=== PATIENT | male | born 1995 | race Caucasian/White ===

== ENCOUNTER 2017-02-20 16:30 | Emergency (ER) | payer MEDICAID ==
--- NOTE | 2017-02-20 18:41 | ERPHSYRPT ---
- History of Present Illness Time Seen by Provider: 02/20/17 18:34 Source: patient Exam Limitations: no limitations Patient Subjective Stated Complaint: sore throat and increased hearig loss for 2 days Triage Nursing Assessment: sore throat for 2 days. throat red and swollen. pain with swallowing. bilat ear wax-lt worse than rt. pt normally has hearing loss but stated it is equally worse for past 2 days. no fever Physician History: Sore throat and earache for 2-3 days, dry cough, nasal drainage and congestion, but no fever, chills, N/V/D. Taking some cough meds with min. relief. Rest of family with cough/cold symptoms. Timing/Duration: gradual onset Severity: moderate ENT Location: throat Prearrival Treatment: over the counter meds Modifying Factors: Improves With: coughing (worsens), exertion (worsens) Associated Symptoms: ear pain (R), ear pain (L), cough, fever, nasal congestion/ drainage, No chills, No ear drainage, No difficulty swallowing Allergies/Adverse Reactions: No Known Drug Allergies Allergy (Unverified 02/20/17 17:49) Home Medications: No Home Meds 1 [facility] UD 02/20/17 [History] Hx Tetanus, Diphtheria Vaccination/Date Given: Yes Hx Influenza Vaccination/Date Given: No Hx Pneumococcal Vaccination/Date Given: No Immunizations Up to Date: Yes - Review of Systems Constitutional: Fatigue, No Fever, No Chills Eyes: No Symptoms Ears, Nose, & Throat: Ear Pain, Hearing Changes, Nose Congestion, Nose Discharge , Throat Pain, Throat Swelling, No Painful Swallowing Respiratory: No Cough, No Dyspnea Cardiac: No Chest Pain, No Edema, No Syncope Abdominal/Gastrointestinal: No Abdominal Pain, No Nausea, No Vomiting, No Diarrhea Genitourinary Symptoms: No Dysuria Musculoskeletal: No Back Pain, No Neck Pain Skin: No Rash Neurological: No Dizziness, No Focal Weakness, No Sensory Changes Psychological: No Symptoms Endocrine: No Symptoms All Other Systems: Reviewed and Negative - Past Medical History Pertinent Past Medical History: Yes Neurological History: No Pertinent History ENT History: No Pertinent History, Other (decreased hearing) Cardiac History: No Pertinent History Respiratory History: No Pertinent History Endocrine Medical History: No Pertinent History Musculoskeletal History: No Pertinent History GI Medical History: No Pertinent History History: No Pertinent History Psycho-Social History: No Pertinent History Male Reproductive Disorders: No Pertinent History Other Medical History: born with hearing loss - Past Surgical History Past Surgical History: No Neuro Surgical History: No Pertinent History Cardiac: No Pertinent History Respiratory: No Pertinent History Gastrointestinal: No Pertinent History Genitourinary: No Pertinent History Musculoskeletal: No Pertinent History Male Surgical History: No Pertinent History Other Surgical History: ADNOIDS REMOVED WHEN YOUNGER - Social History Smoking Status: Never smoker Exposure to second hand smoke: No Drug Use: none Patient Lives Alone: No - Nursing Vital Signs Nursing Vital Signs: Initial Vital Signs Temperature 98.2 F Temperature Source Oral Pulse Rate 75 Respiratory Rate 16 Blood Pressure [Right Arm] 122/58 Pain Intensity 8 - Physical Exam General Appearance: no apparent distress, alert Eye Exam: bilateral eye: PERRL, EOMI Ear Exam: left ear: other (increased scarring of TM noted) Nasal Exam: normal inspection Throat Exam: moist mucus membranes, pharynx swelling (erythematous bilat), No tongue swollen, No tonsillar exudate Neck Exam: normal inspection, non-tender, supple, full range of motion, trachea midline Cardiovascular/Respiratory Exam: normal breath sounds, regular rate/rhythm Abdominal Exam: non-tender, soft Neurologic Exam: alert, oriented x 3, sensation nml, No motor deficits Skin Exam: normal color, warm, dry SpO2: 98 Oxygen Delivery: Room Air - Progress Progress: improved Counseled pt/family regarding: diagnosis - Departure Time of Disposition: 18:49 Departure Disposition: Home Clinical Impression: Pharyngitis Condition: Stable Critical Care Time: No Instructions: Strep Throat Additional Instructions: Motrin or Tylenol for fever, drink plenty of fluids. RX: Amoxil Return for worse sore throat, fever, difficulty swallowing/breathing or any problems. Prescriptions: Amoxicillin [Amoxil] 875 mg PO BID #20 tablet
[2017-02-20 19:02] VITALS: BP 112/55; PULSE 81; O2SAT 97
== END 2017-02-20 19:00 | disposition home or self-care (01) ==
LOC: ED 16:30
DX: J02.9 Acute pharyngitis, unspecified (principal); H91.93 Unspecified hearing loss, bilateral; H92.03 Otalgia, bilateral; R05 Cough; R50.9 Fever, unspecified
CPT/HCPCS: 99283

== ENCOUNTER 2017-08-24 11:38 | Emergency (ER) | payer OTHER ==
[2017-08-24 12:17] VITALS: BP 124/64; PULSE 65
[2017-08-24 12:18] VITALS: O2SAT 98
--- NOTE | 2017-08-24 12:39 | ERPHSYRPT ---
- History of Present Illness Time Seen by Provider: 08/24/17 12:35 Source: patient, family Exam Limitations: no limitations Patient Subjective Stated Complaint: PT HERE FOR RUNNY NOSE, HEADACHE, COUGH PRODUCTIVE GREEN Triage Nursing Assessment: PT ALERT, RESP EASY, SKIN W/D PINK, Physician History: c/o cough, runny nose, for 2 days Timing/Duration: day(s) (2 days) Cough Quality/Degree: productive cough Associated Symptoms: cough, nasal congestion, nasal drainage, sinus infection, sore throat, No muscle aches, No shortness of breath, No wheezing International travel in last 2 weeks: No Allergies/Adverse Reactions: No Known Drug Allergies Allergy (Verified 08/24/17 12:18) Home Medications: No Home Meds [No Home Meds] 1 [facility] UD 02/20/17 [History] Hx Tetanus, Diphtheria Vaccination/Date Given: Yes Hx Influenza Vaccination/Date Given: No Hx Pneumococcal Vaccination/Date Given: No Immunizations Up to Date: Yes - Review of Systems Constitutional: No Symptoms Eyes: No Symptoms Ears, Nose, & Throat: Nose Congestion, Nose Discharge, Sinus Drainage, Throat Pain Respiratory: Cough Cardiac: No Symptoms Abdominal/Gastrointestinal: No Symptoms Musculoskeletal: No Symptoms - Past Medical History Pertinent Past Medical History: Yes Neurological History: No Pertinent History ENT History: No Pertinent History, Other Cardiac History: No Pertinent History Respiratory History: No Pertinent History Endocrine Medical History: No Pertinent History Musculoskeletal History: No Pertinent History GI Medical History: No Pertinent History History: No Pertinent History Psycho-Social History: No Pertinent History Male Reproductive Disorders: No Pertinent History Other Medical History: born with hearing loss - Past Surgical History Past Surgical History: No Neuro Surgical History: No Pertinent History Cardiac: No Pertinent History Respiratory: No Pertinent History Gastrointestinal: No Pertinent History Genitourinary: No Pertinent History Musculoskeletal: No Pertinent History Male Surgical History: No Pertinent History Other Surgical History: ADNOIDS REMOVED WHEN YOUNGER - Social History Smoking Status: Never smoker Exposure to second hand smoke: No Drug Use: none Patient Lives Alone: No - Nursing Vital Signs Nursing Vital Signs: Initial Vital Signs Temperature 97.3 F 08/24/17 12:13 Pulse Rate 65 08/24/17 12:13 Respiratory Rate 16 08/24/17 12:13 Blood Pressure 124/64 08/24/17 12:13 O2 Sat by Pulse Oximetry 95 08/24/17 12:13 Pain Scale Pain Intensity 8 - Physical Exam General Appearance: no apparent distress Eye Exam: PERRL/EOMI Ears, Nose, Throat Exam: moist mucous membranes, pharyngeal erythema Neck Exam: normal inspection Respiratory Exam: normal breath sounds SpO2: 98 Oxygen Delivery: Room Air - Course Nursing assessment & vital signs reviewed: Yes - Progress Progress: unchanged Air Movement: good Blood Culture(s) Obtained: No Antibiotics given: No Counseled pt/family regarding: diagnosis, need for follow-up - Departure Time of Disposition: 12:37 Departure Disposition: Home Clinical Impression: Pharyngitis Qualifiers: Pharyngitis/tonsillitis etiology: unspecified etiology Qualified Code(s): J02.9 - Acute pharyngitis, unspecified Condition: Stable Critical Care Time: No Referrals: KYMBERLY ROMAN MD [Primary Care Provider] - Instructions: Pharyngitis/Tonsillopharyngitis -- Adult Prescriptions: Amoxicillin 500 mg Cap [Amoxil 500 mg] 500 mg PO TID #30 capsule Guaifenesin/Dextromethorphan [Mucinex Dm ER 1,200-60 mg Tab] 1 each PO BID #15 tab.er.[id number]
== END 2017-08-24 12:43 | disposition home or self-care (01) ==
LOC: ED 11:38
DX: J02.9 Acute pharyngitis, unspecified (principal)
CPT/HCPCS: 99283

== ENCOUNTER 2018-01-24 16:36 | Emergency (ER) | payer OTHER ==
[2018-01-24] MEDS ORDERED: Rocephin 1000 MG INJ IM STA (16:55)
[2018-01-24] MEDS ORDERED: Motrin 100 MG/5 ML PO ONE (16:55)
[2018-01-24] MEDS ORDERED: Motrin 100 MG/5 ML ONE (16:57)
[2018-01-24] MEDS ORDERED: Rocephin 1000 MG INJ ONE (16:57)
[2018-01-24] MEDS ORDERED: XYLOCAINE 1% HCL 20 ML MDV ONE (16:57)
--- NOTE | 2018-01-24 17:00 | ERPHSYRPT ---
- History of Present Illness Time Seen by Provider: 01/24/18 16:51 Source: patient Exam Limitations: no limitations Patient Subjective Stated Complaint: pt reprots he woke up this morning with a sore throat-denies fever Triage Nursing Assessment: pt pink warm and [id number] easy and nonlabored Physician History: TODAY PT STARTED WITH A SORE THROAT AND BODY ACHES; DENIES CHEST PAIN, SHORTNESS OF AIR, ABDOMINAL PAIN. Allergies/Adverse Reactions: No Known Drug Allergies Allergy (Verified 01/24/18 16:47) Home Medications: No Home Meds [No Home Meds] 1 e[facility] UD 02/20/17 [History] Hx Tetanus, Diphtheria Vaccination/Date Given: Yes Hx Influenza Vaccination/Date Given: No Hx Pneumococcal Vaccination/Date Given: No Immunizations Up to Date: Yes - Review of Systems Ears, Nose, & Throat: Throat Pain Respiratory: No Dyspnea Cardiac: No Chest Pain Abdominal/Gastrointestinal: No Abdominal Pain Musculoskeletal: Arthralgias All Other Systems: Reviewed and Negative - Past Medical History Pertinent Past Medical History: Yes Neurological History: No Pertinent History ENT History: No Pertinent History, Other Cardiac History: No Pertinent History Respiratory History: No Pertinent History Endocrine Medical History: No Pertinent History Musculoskeletal History: No Pertinent History GI Medical History: No Pertinent History History: No Pertinent History Psycho-Social History: No Pertinent History Male Reproductive Disorders: No Pertinent History Other Medical History: born with hearing loss - Past Surgical History Past Surgical History: No Neuro Surgical History: No Pertinent History Cardiac: No Pertinent History Respiratory: No Pertinent History Gastrointestinal: No Pertinent History Genitourinary: No Pertinent History Musculoskeletal: No Pertinent History Male Surgical History: No Pertinent History Other Surgical History: ADNOIDS REMOVED WHEN YOUNGER - Social History Smoking Status: Never smoker Exposure to second hand smoke: No Drug Use: none Patient Lives Alone: No - Nursing Vital Signs Nursing Vital Signs: Initial Vital Signs Temperature 98.1 F 01/24/18 16:40 Pulse Rate 84 01/24/18 16:40 Respiratory Rate 18 01/24/18 16:40 Blood Pressure 116/60 01/24/18 16:40 O2 Sat by Pulse Oximetry 98 01/24/18 16:40 Pain Scale Pain Intensity 2 - Physical Exam General Appearance: alert Eye Exam: PERRL/EOMI Ears, Nose, Throat Exam: moist mucous membranes, TM abnormal (L) (LEFT TM ERYTHAMATOUS), pharyngeal erythema Neck Exam: normal inspection Respiratory Exam: lungs clear Cardiovascular Exam: normal heart sounds Gastrointestinal/Abdomen Exam: soft, normal bowel sounds Back Exam: normal range of motion Extremity Exam: normal inspection, No pedal edema Neurologic Exam: alert, cooperative Skin Exam: warm, dry SpO2 Interpretation: normal SpO2: 98 Oxygen Delivery: Room Air - Course Nursing assessment & vital signs reviewed: Yes Ordered Tests: Medication Summary Generic Name Dose Route Start Last Admin Trade Name Sudhirq PRN Reason Stop Dose Admin Ceftriaxone Sodium 1,000 mg 01/24/18 16:55 Rocephin 1000 Mg Inj IM 01/24/18 16:56 STAT STA Ibuprofen 400 mg 01/24/18 16:55 Motrin 100 Mg/5 Ml PO 01/24/18 16:56 STAT ONE - Departure Time of Disposition: 16:59 Departure Disposition: Home Clinical Impression: PHARYNGITIS, LOM Condition: Stable Critical Care Time: No Referrals: KYMBERLY ROMAN MD [Primary Care Provider] - Instructions: Sore Throat, Adult (DC) Additional Instructions: FOLLOW UP WITH PRIVATE DOCTOR TOMORROW. Prescriptions: Amoxicillin 250 mg/5 ml [Amoxil 250 mg/5 ml] 250 mg PO TID #150 ml
[2018-01-24 17:10] VITALS: BP 120/62; PULSE 78; O2SAT 99
== END 2018-01-24 17:12 | disposition home or self-care (01) ==
LOC: ED 16:36
DX: J02.9 Acute pharyngitis, unspecified (principal); H66.92 Otitis media, unspecified, left ear
CPT/HCPCS: 96372; 99283; 99284; J0696; A9270-GY

== ENCOUNTER 2018-10-11 15:27 | Emergency (ER) | payer OTHER ==
[2018-10-11 15:39] VITALS: PULSE 69; O2SAT 98
--- NOTE | 2018-10-11 15:55 | ERPHSYRPT ---
- History of Present Illness Source: patient Exam Limitations: no limitations Patient Subjective Stated Complaint: pt here for sorethroat, cough, runny nose for a couple days now, no fever Triage Nursing Assessment: pt alert, resp easy, skin w/d/p has congested sounding cough, productive yellow Physician History: The patient is a 23-year-old male with a relative complaining of a cough with yellow sputum and sore throat since 10/05/18. He denies fever. His throat is sore when he coughs. He denies nausea, vomiting, or diarrhea. He is requesting an antibiotic. Timing/Duration: day(s) (6), gradual onset, worse Cough Quality/Degree: moderate, productive cough Possible Cause: occasional episodes Modifying Factors: Improves With: coughing Associated Symptoms: cough, sore throat, No fever, No wheezing Allergies/Adverse Reactions: No Known Drug Allergies Allergy (Verified 10/11/18 15:39) Home Medications: No Home Meds [No Home Meds] [address] [facility] 02/20/17 [History] Hx Tetanus, Diphtheria Vaccination/Date Given: Yes Hx Influenza Vaccination/Date Given: No Hx Pneumococcal Vaccination/Date Given: No Immunizations Up to Date: Yes - Review of Systems Constitutional: No Fever, No Chills Eyes: No Symptoms Ears, Nose, & Throat: Throat Pain Respiratory: Cough Cardiac: No Chest Pain, No Edema, No Syncope Abdominal/Gastrointestinal: No Abdominal Pain, No Nausea, No Vomiting, No Diarrhea Genitourinary Symptoms: No Dysuria Musculoskeletal: No Back Pain, No Neck Pain Skin: No Rash Neurological: No Dizziness, No Focal Weakness, No Sensory Changes Psychological: No Symptoms Endocrine: No Symptoms Hematologic/Lymphatic: No Symptoms Immunological/Allergic: No Symptoms All Other Systems: Reviewed and Negative - Past Medical History Pertinent Past Medical History: Yes Neurological History: No Pertinent History ENT History: No Pertinent History, Other Cardiac History: No Pertinent History Respiratory History: No Pertinent History Endocrine Medical History: No Pertinent History Musculoskeletal History: No Pertinent History GI Medical History: No Pertinent History History: No Pertinent History Psycho-Social History: No Pertinent History Male Reproductive Disorders: No Pertinent History Other Medical History: born with hearing loss - Past Surgical History Past Surgical History: No Neuro Surgical History: No Pertinent History Cardiac: No Pertinent History Respiratory: No Pertinent History Gastrointestinal: No Pertinent History Genitourinary: No Pertinent History Musculoskeletal: No Pertinent History Male Surgical History: No Pertinent History Other Surgical History: ADNOIDS REMOVED WHEN YOUNGER - Social History Smoking Status: Never smoker Exposure to second hand smoke: Yes (occ) Drug Use: none Patient Lives Alone: No - Nursing Vital Signs Nursing Vital Signs: Initial Vital Signs Temperature 98.5 F 10/11/18 15:33 Pulse Rate 69 10/11/18 15:33 Respiratory Rate 16 10/11/18 15:33 Blood Pressure 115/61 10/11/18 15:33 O2 Sat by Pulse Oximetry 98 10/11/18 15:33 Pain Scale Pain Intensity 6 - Physical Exam General Appearance: no apparent distress, alert Eye Exam: PERRL/EOMI, eyes nml inspection Ears, Nose, Throat Exam: pharyngeal erythema Neck Exam: normal inspection, non-tender, supple, full range of motion Respiratory Exam: normal breath sounds, lungs clear, No respiratory distress Cardiovascular Exam: regular rate/rhythm, normal heart sounds Gastrointestinal/Abdomen Exam: soft, No tenderness Rectal Exam: not done Back Exam: normal inspection, No CVA tenderness, No vertebral tenderness Extremity Exam: normal inspection, normal range of motion Neurologic Exam: alert, oriented x 3, cooperative, normal mood/affect, sensation nml, No motor deficits Skin Exam: normal color, warm, dry, No rash Lymphatic Exam: No adenopathy SpO2 Interpretation: normal SpO2: 98 Oxygen Delivery: Room Air - Radiology Exams Chest X-ray Interpretation: Interpreted by me, Negative Ordered Tests: Active Orders 24 hr Category Date Time Status CHEST 2 VIEWS (PA AND LAT) Stat Exams 10/11/18 16:18 Taken Medication Summary Discontinued Medications Generic Name Dose Route Start Last Admin Trade Name Alonso PRN Reason Stop Dose Admin Ceftriaxone Sodium 1,000 mg 10/11/18 15:58 10/11/18 16:11 Rocephin 1000 Mg Inj IM 10/11/18 15:59 1,000 mg STAT ONE Administration Ceftriaxone Sodium Confirm 10/11/18 16:05 Rocephin 1000 Mg Inj Administered 10/11/18 16:06 Dose 1,000 mg .ROUTE .STK-MED ONE Lidocaine HCl Confirm 10/11/18 16:05 Xylocaine 1% Hcl 20 Ml Mdv Administered 10/11/18 16:06 Dose 3 ml .ROUTE .STK-MED ONE - Progress Progress: improved Air Movement: good Blood Culture(s) Obtained: No Antibiotics given: Yes Counseled pt/family regarding: diagnosis, rad results - Departure Time of Disposition: 16:21 Departure Disposition: Home Clinical Impression: Bronchitis Condition: Stable Critical Care Time: No Referrals: KYMBERLY ROMAN MD [Primary Care Provider] - Additional Instructions: You have bronchitis. The chest x-ray was negative for pneumonia. You were given Rocephin 1 g IM in the ER. You may take liquid azithromycin 500 mg on day one followed by 250 mg daily for days 2 through 5. Follow-up with your primary medical doctor as needed. Prescriptions: Azithromycin 200 mg/5 ml [Zithromax 200MG/5 ML LIQUID] 500 mg PO ZPACK #1 bottle
[2018-10-11] MEDS ORDERED: Rocephin 1000 MG INJ IM ONE (15:58)
[2018-10-11] MEDS ORDERED: Rocephin 1000 MG INJ ONE (16:05)
[2018-10-11] MEDS ORDERED: XYLOCAINE 1% HCL 20 ML MDV ONE (16:05)
[2018-10-11 16:28] VITALS: BP 123/65
--- NOTE | 2018-10-11 20:59 | XRAY ---
Indication: Cough and sore throat. Comparison: November 25, 2007. PA/lateral chest remains hyperinflated and clear. Heart and mediastinal structures within normal limits. Bony thorax intact. Impression: Stable nonacute hyperinflated chest.
== END 2018-10-11 16:30 | disposition home or self-care (01) ==
LOC: ED 15:27
DX: J40 Bronchitis, not specified as acute or chronic (principal)
CPT/HCPCS: 71046; 96372; 99284; J0696

== ENCOUNTER 2019-05-30 14:32 | Emergency (ER) | payer OTHER ==
[2019-05-30] MEDS ORDERED: DECADRON 10MG INJ. IM ONE (15:44)
--- NOTE | 2019-05-30 15:51 | ERPHSYRPT ---
- History of Present Illness Time Seen by Provider: 05/30/19 15:35 Source: patient, family (Guardian) Exam Limitations: no limitations Patient Subjective Stated Complaint: pt presents with guardian, pt has partial hearing loss from , pt guardian reports he was seen by Dr Roman 05/25/19 for ear pain and sore throat, pt was prescribed amoxicillin which he has been taking. reports pt s/s have not improved. pt reports headache, malaise. Triage Nursing Assessment: pt is aox3, pupils perrl, afebrile, resps easy and non labored, radial pulses strong and equal, cap refill < 3 seconds, pt skin pink warm dry. Physician History: Sorethroat, earaches, headache for 1 week. Throat is better. He has been on Amoxicillin for a few days - saw Dr. Zendejas. Told to follow up Friday if not better. Timing/Duration: gradual onset Severity: moderate (headache is the most severe) ENT Location: ear (R), ear (L), throat (Throat is better today) Associated Symptoms: ear pain (R), ear pain (L), headache, No cough, No fever, No chills Allergies/Adverse Reactions: No Known Drug Allergies Allergy (Verified 05/30/19 14:49) Home Medications: Amoxicillin 500 mg PO TID 05/30/19 [History] Hx Tetanus, Diphtheria Vaccination/Date Given: Yes Hx Influenza Vaccination/Date Given: No Hx Pneumococcal Vaccination/Date Given: No Immunizations Up to Date: Yes - Review of Systems Constitutional: Malaise (just doesn't feel well with earache and headache) Ears, Nose, & Throat: Ear Pain Respiratory: No Symptoms, No Cough All Other Systems: Reviewed and Negative - Past Medical History Pertinent Past Medical History: Yes Neurological History: No Pertinent History ENT History: No Pertinent History, Other Cardiac History: No Pertinent History Respiratory History: No Pertinent History Endocrine Medical History: No Pertinent History Musculoskeletal History: No Pertinent History GI Medical History: No Pertinent History History: No Pertinent History Psycho-Social History: No Pertinent History Male Reproductive Disorders: No Pertinent History Other Medical History: born with hearing loss - Past Surgical History Past Surgical History: No Neuro Surgical History: No Pertinent History Cardiac: No Pertinent History Respiratory: No Pertinent History Gastrointestinal: No Pertinent History Genitourinary: No Pertinent History Musculoskeletal: No Pertinent History Male Surgical History: No Pertinent History Other Surgical History: ADNOIDS REMOVED WHEN YOUNGER - Social History Smoking Status: Never smoker Exposure to second hand smoke: Yes (occ) Drug Use: none Patient Lives Alone: No - Nursing Vital Signs Nursing Vital Signs: Initial Vital Signs Temperature 98.1 F 05/30/19 14:37 Pulse Rate 60 05/30/19 14:37 Respiratory Rate 20 05/30/19 14:37 Blood Pressure 115/54 05/30/19 14:37 O2 Sat by Pulse Oximetry 95 05/30/19 14:37 Pain Scale Pain Intensity 8 - Physical Exam General Appearance: no apparent distress Eye Exam: bilateral eye: normal inspection, PERRL, EOMI Ear Exam: right ear: TM normal, left ear: TM dull, bilateral ear: auricle normal , canal normal Nasal Exam: normal inspection Throat Exam: normal, pharynx normal Neck Exam: normal inspection Cardiovascular/Respiratory Exam: chest non-tender, normal breath sounds, heart sounds normal, no respiratory distress Abdominal Exam: non-tender, soft Neurologic Exam: alert, oriented x 3, cooperative, normal mood/affect Skin Exam: normal color, warm, dry SpO2 Interpretation: normal SpO2: 95 O2 Delivery: Room Air - Course Nursing assessment & vital signs reviewed: Yes Ordered Tests: Medication Summary Discontinued Medications Generic Name Dose Route Start Last Admin Trade Name Sudhirq PRN Reason Stop Dose Admin Dexamethasone Sodium Phosphate 6 mg 05/30/19 15:44 Decadron 10mg Inj. IM 05/30/19 15:45 STAT ONE - Departure Departure Disposition: Home Clinical Impression: Viral syndrome Condition: Stable Critical Care Time: No Referrals: KYMBERLY ROMAN MD [Primary Care Provider] - Additional Instructions: Continue with your Amoxicillin and tylenol for headache. Follow up with primary care; call office tomorrow and let them know how you are doing.
[2019-05-30] MEDS ORDERED: DECADRON 10MG INJ. ONE (15:53)
[2019-05-30 16:23] VITALS: BP 110/55; PULSE 87; O2SAT 98
== END 2019-05-30 16:24 | disposition home or self-care (01) ==
LOC: ED 14:32
DX: B34.9 Viral infection, unspecified (principal)
CPT/HCPCS: 96372; 99283; J1100

== ENCOUNTER 2020-08-07 16:37 | Emergency (ER) | payer OTHER ==
--- NOTE | 2020-08-07 16:45 | ERPHSYRPT ---
- History of Present Illness Time Seen by Provider: 08/07/20 16:45 Source: patient, family Exam Limitations: no limitations Physician History: This is is a 24-year-old white male who has a history of approximately 8 to 10 days of coughing, earache and sore throat. Patient was seen by his primary care physician approximately 8 to 10 days ago and was given an injection in the office of an antibiotic followed by a Z-Young. Patient completed this treatment plan but his symptoms as stated above have persisted. Patient has not had a fever. He denies shortness of breath. He has no abdominal pain. He has had no nausea vomiting or diarrhea. Patient had a negative COVID-19 test last week. Timing/Duration: gradual onset ENT Location: ear (R), ear (L), throat Prearrival Treatment: prescription meds Modifying Factors: Improves With: coughing Associated Symptoms: ear pain (R), ear pain (L), cough, sore throat Allergies/Adverse Reactions: No Known Drug Allergies Allergy (Verified 08/07/20 17:26) Hx Tetanus, Diphtheria Vaccination/Date Given: Yes Hx Influenza Vaccination/Date Given: No Hx Pneumococcal Vaccination/Date Given: No Travel Risk - International Travel Have you traveled outside of the country in past 3 weeks: No - Coronavirus Screening Are you exhibiting any of the following symptoms?: No Close contact with a COVID-19 positive Pt in past 14-21 Days: No - Review of Systems Constitutional: No Symptoms Eyes: No Symptoms Ears, Nose, & Throat: No Symptoms Respiratory: Cough (Mild nonproductive) Cardiac: No Symptoms Abdominal/Gastrointestinal: No Symptoms Genitourinary Symptoms: No Symptoms Musculoskeletal: No Symptoms Skin: No Symptoms Neurological: No Symptoms Psychological: No Symptoms Endocrine: No Symptoms Hematologic/Lymphatic: No Symptoms Immunological/Allergic: No Symptoms All Other Systems: Reviewed and Negative - Past Medical History Pertinent Past Medical History: Yes Neurological History: No Pertinent History ENT History: No Pertinent History, Other Cardiac History: No Pertinent History Respiratory History: No Pertinent History Endocrine Medical History: No Pertinent History Musculoskeletal History: No Pertinent History GI Medical History: No Pertinent History History: No Pertinent History Psycho-Social History: No Pertinent History Male Reproductive Disorders: No Pertinent History Other Medical History: born with hearing loss - Past Surgical History Past Surgical History: No Neuro Surgical History: No Pertinent History Cardiac: No Pertinent History Respiratory: No Pertinent History Gastrointestinal: No Pertinent History Genitourinary: No Pertinent History Musculoskeletal: No Pertinent History Male Surgical History: No Pertinent History Other Surgical History: ADNOIDS REMOVED WHEN YOUNGER - Social History Smoking Status: Never smoker Exposure to second hand smoke: Yes (occ) Drug Use: none Patient Lives Alone: No - Nursing Vital Signs Nursing Vital Signs: Initial Vital Signs Temperature 98.5 F 08/07/20 17:10 Pulse Rate 72 08/07/20 17:10 Blood Pressure 122/58 08/07/20 17:10 O2 Sat by Pulse Oximetry 96 08/07/20 17:10 Pain Scale Pain Intensity 6 - Physical Exam General Appearance: no apparent distress, alert Eye Exam: bilateral eye: normal inspection, PERRL, EOMI Ear Exam: bilateral ear: auricle normal, canal normal, TM normal Nasal Exam: normal inspection Throat Exam: normal, pharynx normal, moist mucus membranes Neck Exam: normal inspection, non-tender, supple, full range of motion, trachea midline Cardiovascular/Respiratory Exam: chest non-tender, normal breath sounds, regular rate/rhythm, heart sounds normal, no respiratory distress Abdominal Exam: non-tender Neurologic Exam: alert, oriented x 3, cooperative, accessioner II-XII nml as tested, normal mood/affect, nml cerebellar function, nml station & gait, sensation nml Skin Exam: normal color, warm, dry SpO2 Interpretation: normal O2 Delivery: Room Air - Course Nursing assessment & vital signs reviewed: Yes Ordered Tests: Active Orders 24 hr Category Date Time Status CHEST 1 VIEW (PORTABLE) Stat Exams 08/07/20 17:35 Taken Lab/Rad Data: Laboratory Results 08/07/20 08/07/20 Range/Units 17:55 17:55 Influenza Type A Ag NEGATIVE (NEGATIVE) Influenza Type B Ag NEGATIVE (NEGATIVE) RSV (PCR) NEGATIVE (Negative) Group A Strep Antibody NOT DETECTED (NEGATIVE) - Progress Progress: unchanged Progress Note: 08/07/20 17:53 Chest x-ray shows no acute cardiopulmonary process. Counseled pt/family regarding: lab results, diagnosis, need for follow-up, rad results - Departure Departure Disposition: Home Clinical Impression: Bronchitis Condition: Stable Critical Care Time: No Referrals: KYMBERLY ROMAN MD [Primary Care Provider] - Additional Instructions: Drink plenty of fluids. Take medication as prescribed. Follow-up with your primary care doctor for persistent symptoms. Prescriptions: Prednisone 10 mg [Deltasone 10 mg] 10 mg PO TID #12 tablet Hydrocodone Bit/Acetaminophen [Hydrocodone-Acetaminophen Soln] 10 ml PO Q6H #120 ml
[2020-08-07 18:25] VITALS: BP 114/64
[2020-08-07 18:32] LABS: INFLUENZA A NEGATIVE (NEGATIVE); INFLUENZA B NEGATIVE (NEGATIVE); RESPIRATORY SYNCTIAL VIRUS NEGATIVE (Negative)
[2020-08-07 19:01] VITALS: PULSE 74; O2SAT 97
--- NOTE | 2020-08-08 08:43 | XRAY ---
Indication: Cough and congestion. Comparison: October 11, 2018. Portable chest less inflated again demonstrating normal heart, lungs, and bony thorax.
== END 2020-08-07 19:10 | disposition home or self-care (01) ==
LOC: ED 16:37
DX: J40 Bronchitis, not specified as acute or chronic (principal)
CPT/HCPCS: 71045; 87631; 87651; 99284

== ENCOUNTER 2023-03-12 12:21 | Emergency (ER) | payer OTHER ==
[2023-03-12] MEDS ORDERED: Zofran 4 MG/2 ML VIAL IV ONE (13:05)
[2023-03-12] MEDS ORDERED: CITROMA 296 ML PO ONE (13:05)
[2023-03-12] MEDS ORDERED: Sodium Chloride 0.9% 1000 ML 1,000 ML IV STA (13:05)
[2023-03-12] MEDS ORDERED: Senokot-S Tablet PO ONE (13:06)
--- NOTE | 2023-03-12 13:25 | ERPHSYRPT ---
- History of Present Illness Time Seen by Provider: 03/12/23 12:22 Source: patient Exam Limitations: no limitations Patient Subjective Stated Complaint: PT states "I have not went to the bathroom in 5 days and my belly hurts. I have tried half a bottle of mag citrate, one doese miralax and a couple of laxatives and nothing is working." Triage Nursing Assessment: Pt presented alert and oriented X 3, skin pwd. Pt ambulates with a slow gait holding his abdomen. PT in no apparent respiratory distress. Physician History: Patient is here with constipation x5 days. No falls or trauma. No fever no chills. Pain is in the lower abdomen. Some nausea, no active vomiting. Patient states that they have tried some [id number] medication but have not been able to take all of it. Did not drink a full thing and MiraLAX did not drink all the magnesium citrate. Allergies/Adverse Reactions: No Known Drug Allergies Allergy (Verified 08/07/20 17:26) Hx Tetanus, Diphtheria Vaccination/Date Given: Yes Hx Influenza Vaccination/Date Given: No Hx Pneumococcal Vaccination/Date Given: No Immunizations Up to Date: Yes Travel Risk - International Travel Have you traveled outside of the country in past 3 weeks: No - Coronavirus Screening Are you exhibiting any of the following symptoms?: No Close contact with a COVID-19 positive Pt in past 14-21 Days: No - Vaccine Status Have you recieved a Covid-19 vaccination: No - Review of Systems Constitutional: No Fever, No Chills Eyes: No Symptoms Ears, Nose, & Throat: No Symptoms Respiratory: No Cough, No Dyspnea Cardiac: No Chest Pain, No Edema, No Syncope Abdominal/Gastrointestinal: Abdominal Pain, No Nausea, No Vomiting, No Diarrhea Genitourinary Symptoms: No Dysuria Musculoskeletal: No Back Pain, No Neck Pain Skin: No Rash Neurological: No Dizziness, No Focal Weakness, No Sensory Changes Psychological: No Symptoms Endocrine: No Symptoms All Other Systems: Reviewed and Negative - Past Medical History Pertinent Past Medical History: Yes Neurological History: No Pertinent History ENT History: No Pertinent History, Other Cardiac History: No Pertinent History Respiratory History: No Pertinent History Endocrine Medical History: No Pertinent History Musculoskeletal History: No Pertinent History GI Medical History: No Pertinent History History: No Pertinent History Psycho-Social History: No Pertinent History Male Reproductive Disorders: No Pertinent History Other Medical History: born with hearing loss - Past Surgical History Past Surgical History: No Neuro Surgical History: No Pertinent History Cardiac: No Pertinent History Respiratory: No Pertinent History Gastrointestinal: No Pertinent History Genitourinary: No Pertinent History Musculoskeletal: No Pertinent History Male Surgical History: No Pertinent History Other Surgical History: ADNOIDS REMOVED WHEN YOUNGER - Social History Smoking Status: Never smoker Exposure to second hand smoke: Yes (occ) Drug Use: none Patient Lives Alone: No - Nursing Vital Signs Nursing Vital Signs: Initial Vital Signs Temperature 97.2 F 03/12/23 12:31 Pulse Rate 63 03/12/23 12:31 Respiratory Rate 20 03/12/23 12:31 Blood Pressure 121/59 03/12/23 12:31 O2 Sat by Pulse Oximetry 98 03/12/23 12:31 Pain Scale Pain Intensity 8 - Physical Exam General Appearance: no apparent distress, alert Eye Exam: PERRL/EOMI, eyes nml inspection Ears, Nose, Throat Exam: normal ENT inspection, TMs normal, pharynx normal, moist mucous membranes Neck Exam: normal inspection, non-tender, supple, full range of motion Respiratory Exam: normal breath sounds, lungs clear, No respiratory distress Cardiovascular Exam: regular rate/rhythm, normal heart sounds, normal peripheral pulses Gastrointestinal/Abdomen Exam: soft, normal bowel sounds, other (No rebound or guarding in the right lower or left lower abdominal area), No tenderness, No mass Back Exam: normal inspection, normal range of motion, No CVA tenderness, No vertebral tenderness Extremity Exam: normal inspection, normal range of motion, pelvis stable Neurologic Exam: alert, oriented x 3, cooperative, normal mood/affect, nml cerebellar function, nml station & gait, sensation nml, No motor deficits Skin Exam: normal color, warm, dry, No rash Lymphatic Exam: No adenopathy SpO2: 98 - Course Nursing assessment & vital signs reviewed: Yes Ordered Tests: Active Orders 24 hr Category Date Time Status IV Insertion STAT Care 03/12/23 13:05 Completed KUB Stat Exams 03/12/23 13:05 Completed CBC W DIFF Stat Lab 03/12/23 13:30 Completed CMP Stat Lab 03/12/23 13:30 Completed LIPASE Stat Lab 03/12/23 13:30 Completed Medication Summary Discontinued Medications Generic Name Dose Route Start Last Admin Trade Name Freq PRN Reason Stop Dose Admin Bisacodyl 15 mg 03/12/23 14:00 03/12/23 13:42 Bisacodyl 5 Mg Tablet.Ec PO 03/12/23 14:01 15 mg ONCE ONE Administration Sodium Chloride 1,000 mls @ 999 mls/hr 03/12/23 13:05 03/12/23 13:41 Sodium Chloride 0.9% 1000 Ml IV 03/12/23 14:05 999 mls/hr .Q1H1M STA Administration Sodium Chloride Confirm 03/12/23 13:33 Sodium Chloride 0.9% 1000 Ml Administered 03/12/23 13:34 Dose 1,000 mls @ ud .ROUTE .STK-MED ONE Magnesium Citrate 296 ml 03/12/23 13:05 03/12/23 13:43 Magnesium Citrate 296 Ml Solution PO 03/12/23 13:06 Not Given STAT ONE Ondansetron HCl 4 mg 03/12/23 13:05 03/12/23 13:42 Ondansetron Hcl 4 Mg/2 Ml Vial IV 03/12/23 13:06 4 mg STAT ONE Administration Ondansetron HCl Confirm 03/12/23 13:33 Ondansetron Hcl 4 Mg/2 Ml Vial Administered 03/12/23 13:34 Dose 4 mg .ROUTE .STK-MED ONE Senna/Docusate Sodium 1 udtab 03/12/23 13:06 03/12/23 13:42 Senna/Docusate Sodium 1 Udtab Tablet PO 03/12/23 13:07 1 udtab STAT ONE Administration Lab/Rad Data: Laboratory Result Diagrams 03/12/23 13:30 03/12/23 13:30 Laboratory Results 03/12/23 03/12/23 Range/Units 13:30 13:30 WBC 8.0 (4.0-10.5) x10^3/uL RBC 5.19 (4.1-5.6) x10^6/uL Hgb 15.7 (12.5-18.0) g/dL Hct 47.3 (42-50) % MCV 91.1 (78-100) fL MCH 30.3 (26-32) pg MCHC 33.2 (32-36) g/dL RDW 12.1 (11.5-14.0) % Plt Count 172 (150-450) x10^3/uL MPV 11.0 (7.5-11.0) fL Gran % 87.2 H (36.0-66.0) % Immature Gran % (Auto) 0.5 H (0.00-0.4) % Nucleat RBC Rel Count 0.0 (0.00-0.1) % Eos # (Auto) 0 (0-0.5) x10^3/uL Immature Gran # (Auto) 0.04 H (0.00-0.03) x10^3u/L Absolute Lymphs (auto) 0.44 L (1.0-4.6) x10^3/uL Absolute Monos (auto) 0.53 (0.0-1.3) x10^3/uL Absolute Nucleated RBC 0.00 (0.00-0.01) x10^3u/L Lymphocytes % 5.5 L (24.0-44.0) % Monocytes % 6.6 (0.0-12.0) % Eosinophils % 0.0 (0.00-5.0) % Basophils % 0.2 (0.0-0.4) % Absolute Granulocytes 7.01 H (1.4-6.9) x10^3/uL Basophils # 0.02 (0-0.4) x10^3/uL Sodium 137 (137-145) mmol/L Potassium 4.1 (3.5-5.1) mmol/L Chloride 102 (98-107) mmol/L Carbon Dioxide 21 L (22-30) mmol/L Anion Gap 16.9 H (5-15) MEQ/L BUN 14 (9-20) mg/dL Creatinine 0.84 (0.66-1.25) mg/dL Estimated GFR > 60.0 ML/MIN Glucose 106 (74-106) mg/dL Calcium 8.7 (8.4-10.2) mg/dL Total Bilirubin 0.80 (0.2-1.3) mg/dL AST 26 (17-59) U/L ALT 13 (0-50) U/L Alkaline Phosphatase 93 (38-126) U/L Serum Total Protein 7.8 (6.3-8.2) g/dL Albumin 4.4 (3.5-5.0) g/dL Lipase 39 (23-300) U/L - Progress Progress: improved Progress Note: 03/12/23 13:25 differential diagnosis includes kidney stone, compression fracture, infection, UTI, triple AAA - basic labs including: CBC, lipase, CMP - insert IV for fluids, pain meds, nausea control - consider imaging: CT ab/pelvis, KUB 03/12/23 14:32 Patient given constipation medication here. KUB shows no overt obstruction or other obvious sinister pathology. Abdominal exam remained benign. No rebound no guarding no tenderness. Most likely constipation. We will give a bowel regime going home. Patient may return here sooner for any new or changing symptoms. Counseled pt/family regarding: lab results, diagnosis, need for follow-up, rad results - Departure Departure Disposition: Home Clinical Impression: Constipation Condition: Stable Critical Care Time: No Referrals: KYMBERLY ROMAN MD [Primary Care Provider] - Follow up/PCP as directed Instructions: Constipation, Adult (DC) Prescriptions: Ondansetron ODT 4 MG [Zofran Odt 4 mg] 4 mg PO Q6H PRN PRN #10 tablet PRN Reason: Vomiting Sennosides/Docusate Sodium [Docusate Sodium-Sennosides Tab] 1 each PO BID 30 Days #60 tablet
[2023-03-12] MEDS ORDERED: Zofran 4 MG/2 ML VIAL ONE (13:33)
[2023-03-12] MEDS ORDERED: Sodium Chloride 0.9% 1000 ML 1,000 ML ONE (13:33)
--- NOTE | 2023-03-12 13:35 | XRAY ---
Indication: Constipation. Comparison: None KUB nonacute and nonobstructed with little fecal debris in left hemicolon. Solid organs and osseous structures unremarkable.
[2023-03-12 13:36] VITALS: PULSE 70
[2023-03-12 13:48] LABS: Absolute Neutrophil Ct (ANC) 7.01 x10^3/uL (1.4-6.9); BASOPHIL % 0.2 % (0.0-0.4); Basophil (Absolute #) 0.02 x10^3/uL (0-0.4); Eosinophil (Absolute #) 0 x10^3/uL (0-0.5); Hematocrit 47.3 % (42-50); Hemoglobin 15.7 g/dL (12.5-18.0); IMMATURE GRAN # 0.04 x10^3u/L (0.00-0.03); IMMATURE GRAN % 0.5 % (0.00-0.4); Lymphocyte (Absolute #) 0.44 x10^3/uL (1.0-4.6); Lymphocytes % 5.5 % (24.0-44.0); Mean Cell Volume 91.1 fL (78-100); Mean Corpuscular Hemoglobin 30.3 pg (26-32); Mean Corpuscular Hgb Concent. 33.2 g/dL (32-36); Monocyte (Absolute #) 0.53 x10^3/uL (0.0-1.3); Monocytes % 6.6 % (0.0-12.0); Neutrophil % 87.2 % (36.0-66.0); Platelet Count 172 x10^3/uL (150-450); Red Blood Count 5.19 x10^6/uL (4.1-5.6); Red Cell Distribution Width 12.1 % (11.5-14.0)
[2023-03-12] MEDS ORDERED: DULCOLAX 5 MG PO ONE (14:00)
[2023-03-12 14:01] LABS: ALBUMIN 4.4 g/dL (3.5-5.0); ALKALINE PHOSPHATASE 93 U/L (38-126); ANION GAP 16.9 MEQ/L (5-15); BLOOD UREA NITROGEN 14 mg/dL (9-20); CHLORIDE 102 mmol/L (98-107); Calcium 8.7 mg/dL (8.4-10.2); Carbon Dioxide 21 mmol/L (22-30); Creatinine 1 0.84 mg/dL (0.66-1.25); EST GLOMERULAR FILTRATION RATE > 60.0 ML/MIN; Glucose 106 mg/dL (74-106); LIPASE 39 U/L (23-300); Potassium 4.1 mmol/L (3.5-5.1); SGOT/AST 26 U/L (17-59); SGPT/ALT 13 U/L (0-50); SODIUM 137 mmol/L (137-145); Total Protein 7.8 g/dL (6.3-8.2)
[2023-03-12 14:12] VITALS: O2SAT 98
[2023-03-12 14:16] VITALS: BP 118/57
[2023-03-12 14:59] LABS: Slide Review 1 YES
== END 2023-03-12 14:26 | disposition home or self-care (01) ==
LOC: ED 12:21
DX: K59.00 Constipation, unspecified (principal); R10.30 Lower abdominal pain, unspecified; Z28.310 Unvaccinated for COVID-19
CPT/HCPCS: 36000; 36415; 74018; 80053; 83690; 85025; 96374; 99284; J2405; A9270-GY